=== PATIENT | female | born 1975 | race Caucasian/White ===

== ENCOUNTER 2017-12-04 08:28 | Day surgery (SDC) | payer OTHER ==
[~2017-12-04] VITALS: Ht 177.8 cm; Wt 117.2 kg
[~2017-12-04 08:28] MED LIST: ENOX40I SC; Percocet 5-3251 EACH PO
== END 2017-12-04 13:40 | disposition home or self-care (01) ==
LOC: ORSCSDS 08:28
PROVIDERS: Podiatrist Foot & Ankle Surgery
PROC: 0QBM0ZZ Excision of Left Tarsal, Open Approach (ICD-10-PCS; principal; 2017-12-04 10:00)
PROC: 0LQP0ZZ Repair Left Lower Leg Tendon, Open Approach (ICD-10-PCS; principal; 2017-12-04 10:00)
DX: M77.32 Calcaneal spur, left foot (principal); M76.60 Achilles tendinitis, unspecified leg
CPT/HCPCS: C1713; J0171; J0690; J1100; J2250; J2370; J2405; J2710; J3010; J7120

== ENCOUNTER 2017-12-13 07:49 | Emergency (ER) | payer OTHER ==
[~2017-12-13] VITALS: Ht 177.8 cm; Wt 117.0 kg
[2017-12-13] MEDS ORDERED: Percocet 5-3251 EACH PO (09:55)
== END 2017-12-13 10:12 | disposition home or self-care (01) ==
LOC: ER 07:49
DX: G89.18 Other acute postprocedural pain (principal); M79.672 Pain in left foot; Z79.899 Other long term (current) drug therapy
CPT/HCPCS: 93971; 99283-25

== ENCOUNTER → 2018-07-02 | Outpatient (CLI) | payer BC | LOC: LAB 11:20 → LAB SHORT 11:20 | DX: N39.0 Urinary tract infection, site not specified (principal) | CPT/HCPCS: 87077; 87086; 87186 ==

== ENCOUNTER → 2019-01-22 | Outpatient (CLI) | payer BC ==
[2019-01-26 05:09] LABS: CHLAMYDIA BY NAA Negative (Negative); GONOCOCCUS BY NAA Negative (Negative); TRICH VAG BY NAA Negative (Negative)
== END | disposition home or self-care (01) ==
LOC: LAB 18:45 → LAB SHORT 18:45
PROVIDERS: Nurse Practitioner Family
DX: Z11.3 Encounter for screening for infections with a predominantly sexual mode of transmission (principal)
CPT/HCPCS: 87070; 87205; 87491; 87591; 87661

== ENCOUNTER → 2019-07-29 | Outpatient (CLI) | payer OTHER ==
[2019-07-29 17:12] LABS: Source, Urine Clean Catch
[2019-07-29 18:11] LABS: Appearance, Urine Clear (Clear); Bilirubin, Urine Neg (Neg); Blood, Urine Neg (Neg); Color, Urine Yellow (P-Yellow); Glucose Qualitative, Urine Neg (Neg); Ketones, Urine Neg (Neg); Leukocyte Esterase, Urine 2+ (Neg); Nitrite, Urine Neg (Neg); Protein, Urine Neg (Neg); Specific Gravity, Urine 1.005 (1.003-1.022); Urobilinogen, Urine NORM (Normal)
[2019-07-29 18:21] LABS: Bacteria Few /hpf; Red Blood Cells, Urine 0-2 /hpf (0-2); Squamous Epithelial Cells Few /hpf (Few); White Blood Cells, Urine 0-2 /hpf (0-5)
== END | disposition home or self-care (01) ==
LOC: LAB SHORT 17:11 → LAB 17:11 → LAB FUT 07-28 11:35
PROVIDERS: Nurse Practitioner Family
DX: R30.9 Painful micturition, unspecified (principal)
CPT/HCPCS: 81001; 87077; 87086; 87186

== ENCOUNTER → 2019-08-31 | Outpatient (CLI) | payer OTHER ==
[2019-08-31 15:02] LABS: Source, Urine Clean Catch
[2019-08-31 16:59] LABS: Bilirubin, Urine Neg (Neg); Blood, Urine Neg (Neg); Glucose Qualitative, Urine Neg (Neg); Ketones, Urine Neg (Neg); Leukocyte Esterase, Urine Neg (Neg); Nitrite, Urine Neg (Neg); Protein, Urine Neg (Neg); Urobilinogen, Urine NORM (Normal)
[2019-08-31 17:01] LABS: Appearance, Urine Clear (Clear); Color, Urine Pale Yellow (P-Yellow)
== END | disposition home or self-care (01) ==
LOC: LAB SHORT 15:01 → OLS 15:01
PROVIDERS: Nurse Practitioner Family
DX: R30.9 Painful micturition, unspecified (principal)
CPT/HCPCS: 81003

== ENCOUNTER 2020-04-10 09:49 | Day surgery (SDC) | payer OTHER ==
[2020-04-10] MEDS ORDERED: ERTAPENEM1 G1 IV (14:47)
[2020-04-10] MEDS ORDERED: Colace100 MG PO (14:47)
[2020-04-10] MEDS ORDERED: PROP120ER PO (14:48)
[2020-04-10] MEDS ORDERED: VYVANSE40 MG PO (14:48)
[2020-04-10] MEDS ORDERED: TOPI100 PO (14:49)
[2020-04-11] MEDS ORDERED: Cranberry400 MG PO (17:49)
[2020-04-11] MEDS ORDERED: D-MANNOSE PO (17:50)
[2020-04-11] MEDS ORDERED: ALLEGRA ALLERG180 MG PO (17:51)
[2020-04-11] MEDS ORDERED: L-LYSINE500 M1 PO (17:52)
[2020-04-11] MEDS ORDERED: LORA.5 PO (17:53)
[2020-04-11] MEDS ORDERED: OXYC5 PO (17:53)
[2020-04-11] MEDS ORDERED: OXYB5 PO ×2 (17:54→17:55)
== END 2020-04-10 15:13 | disposition home or self-care (01) ==
LOC: ATC 09:49
DX: N11.1 Chronic obstructive pyelonephritis (principal); B96.20 Unspecified Escherichia coli [E. coli] as the cause of diseases classified elsewhere; Z16.35 Resistance to multiple antimicrobial drugs; Z93.6 Other artificial openings of urinary tract status; F41.9 Anxiety disorder, unspecified; G43.909 Migraine, unspecified, not intractable, without status migrainosus; Z87.442 Personal history of urinary calculi; Z87.448 Personal history of other diseases of urinary system; Z91.011 Allergy to milk products; Z88.5 Allergy status to narcotic agent; Z91.09 Other allergy status, other than to drugs and biological substances
CPT/HCPCS: 96365; J1335

== ENCOUNTER 2020-04-11 07:09 | Day surgery (SDC) | payer OTHER ==
[~2020-04-11 07:09] MED LIST changes: +Colace100 MG PO; +ERTAPENEM1 G1 IV; +PROP120ER PO; +TOPI100 PO; +VYVANSE40 MG PO
[2020-04-11] MEDS ORDERED: Cranberry400 MG PO (17:49)
[2020-04-11] MEDS ORDERED: D-MANNOSE PO (17:50)
[2020-04-11] MEDS ORDERED: ALLEGRA ALLERG180 MG PO (17:51)
[2020-04-11] MEDS ORDERED: L-LYSINE500 M1 PO (17:52)
[2020-04-11] MEDS ORDERED: OXYC5 PO (17:53)
[2020-04-11] MEDS ORDERED: LORA.5 PO (17:53)
[2020-04-11] MEDS ORDERED: OXYB5 PO ×2 (17:54→17:55)
== END 2020-04-11 14:19 | disposition home or self-care (01) ==
LOC: ATC 07:09
DX: N39.0 Urinary tract infection, site not specified (principal); Z16.24 Resistance to multiple antibiotics; Z79.2 Long term (current) use of antibiotics; Z88.5 Allergy status to narcotic agent; Z88.8 Allergy status to other drugs, medicaments and biological substances; Z91.011 Allergy to milk products; Z20.822 Contact with and (suspected) exposure to COVID-19
CPT/HCPCS: 96365; J1335

== ENCOUNTER 2020-04-12 00:36 | Day surgery (SDC) | payer OTHER ==
[~2020-04-12 00:36] MED LIST changes: +ALLEGRA ALLERG180 MG PO; +Cranberry400 MG PO; +D-MANNOSE PO; +L-LYSINE500 M1 PO; +LORA.5 PO; +OXYB5 PO; +OXYC5 PO
== END 2020-04-12 14:40 | disposition home or self-care (01) ==
LOC: ATC 00:36
DX: N39.0 Urinary tract infection, site not specified (principal); G43.909 Migraine, unspecified, not intractable, without status migrainosus; G47.30 Sleep apnea, unspecified; Z79.2 Long term (current) use of antibiotics; Z79.899 Other long term (current) drug therapy; Z16.24 Resistance to multiple antibiotics; Z88.5 Allergy status to narcotic agent; Z91.041 Radiographic dye allergy status; Z91.011 Allergy to milk products; Z20.822 Contact with and (suspected) exposure to COVID-19; Z88.6 Allergy status to analgesic agent; Z91.018 Allergy to other foods
CPT/HCPCS: 96365; J1335

== ENCOUNTER 2020-04-13 01:28 | Day surgery (SDC) | payer OTHER | END 2020-04-13 14:22 | disposition home or self-care (01) | LOC: ATC 01:28 | DX: N39.0 Urinary tract infection, site not specified (principal); G43.909 Migraine, unspecified, not intractable, without status migrainosus; G47.30 Sleep apnea, unspecified; Z79.2 Long term (current) use of antibiotics; Z16.24 Resistance to multiple antibiotics; Z79.899 Other long term (current) drug therapy; Z88.5 Allergy status to narcotic agent; Z91.041 Radiographic dye allergy status; Z91.011 Allergy to milk products; Z88.6 Allergy status to analgesic agent; Z91.018 Allergy to other foods; Z91.09 Other allergy status, other than to drugs and biological substances | CPT/HCPCS: 96365; J1335 ==

== ENCOUNTER 2020-04-14 00:25 | Day surgery (SDC) | payer OTHER | END 2020-04-14 14:30 | disposition home or self-care (01) | LOC: ATC 00:25 | DX: N30.00 Acute cystitis without hematuria (principal); N12 Tubulo-interstitial nephritis, not specified as acute or chronic; B96.20 Unspecified Escherichia coli [E. coli] as the cause of diseases classified elsewhere; F41.9 Anxiety disorder, unspecified; G43.909 Migraine, unspecified, not intractable, without status migrainosus; G47.30 Sleep apnea, unspecified; Z16.24 Resistance to multiple antibiotics; Z16.11 Resistance to penicillins; Z16.19 Resistance to other specified beta lactam antibiotics; Z16.23 Resistance to quinolones and fluoroquinolones; Z88.5 Allergy status to narcotic agent; Z88.8 Allergy status to other drugs, medicaments and biological substances; Z91.011 Allergy to milk products; Z90.710 Acquired absence of both cervix and uterus; Z87.442 Personal history of urinary calculi | CPT/HCPCS: 96365; J1335 ==

== ENCOUNTER 2020-06-08 08:49 | Day surgery (SDC) | payer OTHER ==
[2020-06-08 11:09] LABS: BASOPHILS ABSOLUTE AUTO 0.06 K/mm3 (0.00-0.23); BASOPHILS PERCENT AUTO 1 % (0-2); EOSINOPHILS ABSOLUTE AUTO 0.12 K/mm3 (0.00-0.68); EOSINOPHILS PERCENT AUTO 2 % (0-6); Hematocrit 35.6 % (33.0-51.0); Hemoglobin 11.5 g/dL (11.5-16.0); IMMATURE GRAN ABSOLUTE AUTO 0.01 K/mm3 (0.00-0.10); IMMATURE GRAN PERCENT AUTO 0 % (0-1); LYMPHOCYTES ABSOLUTE AUTO 1.82 K/mm3 (0.84-5.20); LYMPHOCYTES PERCENT AUTO 34 % (21-46); MONOCYTES ABSOLUTE AUTO 0.36 K/mm3 (0.16-1.47); MONOCYTES PERCENT AUTO 7 % (4-13); Mean Corpuscular HGB 30.6 pg (26.0-34.0); Mean Corpuscular HGB Conc 32.3 g/dL (31.5-36.5); Mean Corpuscular Volume 95 fL (80-100); Mean Platelet Volume 11.7 fL (9.1-12.4); NEUTROPHILS ABSOLUTE AUTO 2.94 K/mm3 (1.96-9.15); NEUTROPHILS PERCENT AUTO 55 % (41-73); Platelet Count 231 K/mm3 (150-400); RDW Coefficient Variation 13.6 % (11.7-14.2); Red Blood Cell Count 3.76 M/mm3 (3.80-5.20); White Blood Cell Count 5.31 K/mm3 (4.00-11.30)
[2020-06-08 11:32] LABS: Alanine Aminotransfer (ALT/SGP 17 U/L (12-78); Albumin, Blood 3.2 g/dL (3.4-5.0); Albumin/Globulin Ratio 0.9 (0.8-1.8); Alk Phos 67 U/L (50-136); Anion Gap 5 mmol/L (6-16); Aspartate Aminotrans (AST/SGOT 10 U/L (12-37); Bilirubin, Total 0.3 mg/dL (0.1-1.0); Blood Urea Nitrogen 10 mg/dL (8-24); Bun/Creatinine Ratio 16.1 (12.0-20.0); CO2, Blood 26 mmol/L (21-32); Calcium, Blood 8.9 mg/dL (8.5-10.1); Chloride, Blood 113 mmol/L (98-108); Creatinine, Blood 0.62 mg/dL (0.40-1.00); Globulin, Blood 3.7 g/dL (2.2-4.0); Glomerular Filtration Rate >60 (60-); Glucose, Blood 85 mg/dL (70-99); Potassium, Blood 3.8 mmol/L (3.5-5.5); Sodium, Blood 144 mmol/L (136-145); Total Protein, Blood 6.9 g/dL (6.4-8.2)
--- NOTE | 2020-06-08 11:57 | NUR ---
LABS FAXED TO DR MEDINA PER ORDER
== END 2020-06-08 11:05 | disposition home or self-care (01) ==
LOC: ATC 08:49
PROVIDERS: Internal Medicine Infectious Disease
DX: N12 Tubulo-interstitial nephritis, not specified as acute or chronic (principal); B96.89 Other specified bacterial agents as the cause of diseases classified elsewhere; Z93.6 Other artificial openings of urinary tract status
CPT/HCPCS: 80053; 85025; 96365; J1335

== ENCOUNTER 2020-06-09 00:54 | Day surgery (SDC) | payer OTHER ==
--- NOTE | 2020-06-09 17:03 | NUR ---
PT DID NOT COME TODAY FOR HER ANTIBIOTIC INFUSION.
== END 2020-06-09 22:40 | disposition home or self-care (01) ==
LOC: ATC 00:54
DX: N12 Tubulo-interstitial nephritis, not specified as acute or chronic (principal); Z16.12 Extended spectrum beta lactamase (ESBL) resistance
CPT/HCPCS: J1335

== ENCOUNTER 2020-06-10 09:02 | Day surgery (SDC) | payer OTHER | END 2020-06-10 09:31 | disposition home or self-care (01) | LOC: ATC 09:02 | DX: N12 Tubulo-interstitial nephritis, not specified as acute or chronic (principal); B96.29 Other Escherichia coli [E. coli] as the cause of diseases classified elsewhere; Z88.5 Allergy status to narcotic agent; Z88.8 Allergy status to other drugs, medicaments and biological substances; Z91.040 Latex allergy status; Z91.011 Allergy to milk products | CPT/HCPCS: 96365; J1335 ==

== ENCOUNTER 2020-06-11 09:00 | Day surgery (SDC) | payer OTHER | END 2020-06-11 09:35 | disposition home or self-care (01) | LOC: ATC 09:00 | DX: N12 Tubulo-interstitial nephritis, not specified as acute or chronic (principal); A49.9 Bacterial infection, unspecified; Z16.12 Extended spectrum beta lactamase (ESBL) resistance; Z88.8 Allergy status to other drugs, medicaments and biological substances; Z91.040 Latex allergy status; Z91.011 Allergy to milk products | CPT/HCPCS: 96365; J1335 ==

== ENCOUNTER 2020-06-12 00:33 | Day surgery (SDC) | payer OTHER | END 2020-06-12 08:24 | disposition home or self-care (01) | LOC: ATC 00:33 | DX: N12 Tubulo-interstitial nephritis, not specified as acute or chronic (principal); B96.89 Other specified bacterial agents as the cause of diseases classified elsewhere; Z93.6 Other artificial openings of urinary tract status; Z88.5 Allergy status to narcotic agent; Z88.8 Allergy status to other drugs, medicaments and biological substances; Z91.040 Latex allergy status; Z91.011 Allergy to milk products | CPT/HCPCS: 96365; J1335 ==

== ENCOUNTER 2020-06-13 00:35 | Day surgery (SDC) | payer OTHER | END 2020-06-13 09:30 | disposition home or self-care (01) | LOC: ATC 00:35 | DX: N12 Tubulo-interstitial nephritis, not specified as acute or chronic (principal); B96.20 Unspecified Escherichia coli [E. coli] as the cause of diseases classified elsewhere; Z88.5 Allergy status to narcotic agent; Z88.8 Allergy status to other drugs, medicaments and biological substances; Z91.040 Latex allergy status; Z91.011 Allergy to milk products | CPT/HCPCS: 96365; J1335 ==

== ENCOUNTER 2020-06-14 00:02 | Day surgery (SDC) | payer OTHER | END 2020-06-14 09:34 | disposition home or self-care (01) | LOC: ATC 00:02 | DX: N12 Tubulo-interstitial nephritis, not specified as acute or chronic (principal); A49.9 Bacterial infection, unspecified; Z16.12 Extended spectrum beta lactamase (ESBL) resistance; Z79.899 Other long term (current) drug therapy | CPT/HCPCS: 96365; J1335 ==

== ENCOUNTER → 2020-06-15 | Outpatient (CLI) | payer OTHER ==
[2020-06-15 13:34] LABS: Source, Urine Clean Catch
[2020-06-15 15:24] LABS: Appearance, Urine Clear (Clear); Bilirubin, Urine Neg (Neg); Blood, Urine Neg (Neg); Color, Urine Yellow (P-Yellow); Glucose Qualitative, Urine Neg (Neg); Ketones, Urine Neg (Neg); Leukocyte Esterase, Urine Neg (Neg); Nitrite, Urine Neg (Neg); Protein, Urine Neg (Neg); Urobilinogen, Urine NORM (Normal)
[2020-06-15 15:45] LABS: Squamous Epithelial Cells Few /hpf (Few)
[2020-06-15 15:46] LABS: Amorphous Light (0-Heavy); Bacteria Rare /hpf; Red Blood Cells, Urine 0-2 /hpf (0-2); White Blood Cells, Urine 0-2 /hpf (0-5)
== END | disposition home or self-care (01) ==
LOC: LAB SHORT 13:33 → OLS 13:33
PROVIDERS: Internal Medicine Infectious Disease
DX: N12 Tubulo-interstitial nephritis, not specified as acute or chronic (principal)
CPT/HCPCS: 81001; 81003; 87086

== ENCOUNTER → 2020-06-26 | Outpatient (CLI) | payer OTHER ==
[2020-06-26 12:28] LABS: Source, Urine Clean Catch
[2020-06-26 13:30] LABS: Appearance, Urine Clear (Clear); Bilirubin, Urine Neg (Neg); Blood, Urine Neg (Neg); Color, Urine Yellow (P-Yellow); Glucose Qualitative, Urine Neg (Neg); Ketones, Urine Neg (Neg); Leukocyte Esterase, Urine 1+ (Neg); Nitrite, Urine Neg (Neg); Protein, Urine Neg (Neg); Urobilinogen, Urine NORM (Normal)
[2020-06-26 14:10] LABS: Bacteria Many /hpf; Red Blood Cells, Urine 0-2 /hpf (0-2); Squamous Epithelial Cells Few /hpf (Few); White Blood Cells, Urine 0-2 /hpf (0-5)
== END | disposition home or self-care (01) ==
LOC: LAB SHORT 12:24 → OLS 12:24
PROVIDERS: Internal Medicine Infectious Disease
DX: N12 Tubulo-interstitial nephritis, not specified as acute or chronic (principal)
CPT/HCPCS: 81001; 87077; 87086; 87186

== ENCOUNTER → 2020-07-01 | Outpatient (CLI) | payer OTHER ==
[2020-07-01 12:26] LABS: Source, Urine Clean Catch
[2020-07-01 15:47] LABS: Bilirubin, Urine Neg (Neg); Blood, Urine 1+ (Neg); Glucose Qualitative, Urine Neg (Neg); Ketones, Urine Neg (Neg); Leukocyte Esterase, Urine Neg (Neg); Nitrite, Urine Neg (Neg); Protein, Urine Neg (Neg); Specific Gravity, Urine 1.015 (1.003-1.022); Urobilinogen, Urine NORM (Normal)
[2020-07-01 15:53] LABS: Appearance, Urine Clear (Clear); Color, Urine Pale Yellow (P-Yellow)
[2020-07-01 15:54] LABS: Bacteria Not Seen /hpf; Red Blood Cells, Urine 0-2 /hpf (0-2); Squamous Epithelial Cells Rare /hpf (Few); White Blood Cells, Urine 0-2 /hpf (0-5)
== END | disposition home or self-care (01) ==
LOC: LAB SHORT 12:25 → OLS 12:25 → EDSTATUS 06-07 09:35 → LAB FUT 06-07 09:35
PROVIDERS: Internal Medicine Infectious Disease
DX: N12 Tubulo-interstitial nephritis, not specified as acute or chronic (principal); N39.0 Urinary tract infection, site not specified; T83.511S Infection and inflammatory reaction due to indwelling urethral catheter, sequela
CPT/HCPCS: 81001

== ENCOUNTER → 2020-07-17 | Outpatient (CLI) | payer OTHER ==
[2020-07-17 18:01] LABS: Source, Urine Clean Catch
[2020-07-17 19:04] LABS: Bilirubin, Urine Neg (Neg); Blood, Urine Neg (Neg); Glucose Qualitative, Urine Neg (Neg); Ketones, Urine Neg (Neg); Leukocyte Esterase, Urine Neg (Neg); Nitrite, Urine Neg (Neg); Protein, Urine Neg (Neg); Urobilinogen, Urine NORM (Normal)
[2020-07-17 19:34] LABS: Appearance, Urine Clear (Clear); Color, Urine Yellow (P-Yellow)
== END ==
LOC: OLS 17:28 → LAB SHORT 17:28
PROVIDERS: Internal Medicine Infectious Disease
DX: N39.0 Urinary tract infection, site not specified (principal)
CPT/HCPCS: 81003

== ENCOUNTER → 2020-11-15 | Outpatient (CLI) | payer OTHER | END | disposition home or self-care (01) | LOC: LAB 11:44 → LAB SHORT 11:44 | DX: D48.5 Neoplasm of uncertain behavior of skin (principal) | CPT/HCPCS: 88305 ==

== ENCOUNTER 2022-11-13 13:34 | Day surgery (SDC) | payer BC ==
[~2022-11-13] VITALS: Ht 177.8 cm; Wt 120.1 kg
[2022-11-13] MEDS ORDERED: PROP60 PO (14:33)
[2022-11-13] MEDS ORDERED: BUPR150ER PO (14:36)
[2022-11-13] MEDS ORDERED: VITAMIN D5000 UNIT PO (14:37)
[2022-11-13 16:29] VITALS: BP 116/67
== END 2022-11-13 16:57 | disposition home or self-care (01) ==
LOC: ORSCSDS 13:34
DX: K22.2 Esophageal obstruction (principal); Z12.11 Encounter for screening for malignant neoplasm of colon; D12.4 Benign neoplasm of descending colon; K57.30 Diverticulosis of large intestine without perforation or abscess without bleeding; K21.9 Gastro-esophageal reflux disease without esophagitis; K44.9 Diaphragmatic hernia without obstruction or gangrene; G47.33 Obstructive sleep apnea (adult) (pediatric); E66.9 Obesity, unspecified; Z68.38 Body mass index [BMI] 38.0-38.9, adult; Z79.899 Other long term (current) drug therapy
CPT/HCPCS: 88305; J0461; J2001; J2405; J2704; J7120; Q9968

== ENCOUNTER → 2023-12-11 | Outpatient (CLI) | payer BC ==
[~2023-12-11] MED LIST changes: +BUPR150ER PO; +PROP60 PO; +VITAMIN D5000 UNIT PO
[2023-12-14 21:25] LABS: AMPHETAMINE,URN,QUANT 1493 ng/mL; MDA,URN,QUANT <200 ng/mL; MDEA,URN,QUANT <200 ng/mL; MDMA,URN,QUANT <200 ng/mL; METHAMPHETAMINE,URN,QUANT <200 ng/mL; PHENTERMINE,URN,QUANT <200 ng/mL
== END ==
LOC: LAB SHORT 08:15 → LAB 08:15
PROVIDERS: Physician Assistant
DX: Z51.81 Encounter for therapeutic drug level monitoring (principal); Z79.899 Other long term (current) drug therapy
CPT/HCPCS: G0480